=== PATIENT | male | born 2000 | race Two or more races ===

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

== ENCOUNTER 2020-10-07 | Emergency (ER) | payer BC | END 2020-10-07 20:39 | disposition home or self-care (01) | DX: K03.81 Cracked tooth (principal); I10 Essential (primary) hypertension; Z79.899 Other long term (current) drug therapy | CPT/HCPCS: 99282 ==

== ENCOUNTER 2021-12-18 03:16 | Emergency (ER) | payer BC ==
[2021-12-18 03:21] VITALS: BP 166/98; PULSE 109; RESP 22; TEMP 98.2
[2021-12-18 03:52] LABS: Appearance,Urine Cloudy (Clear); Bacteria,Urine Rare /hpf; Bilirubin,Urine Negative (Negative); Blood,Urine Negative (Negative); Color,Urine Yellow; Glucose,Urine (UA) Negative (Negative); Ketones,Urine Negative (Negative); Leukocyte Esterase,Urine Large (Negative); Mucus,Urine Rare /hpf; Nitrite,Urine Negative (Negative); Protein,Urine Trace (Negative); RBC,Urine 2 /hpf (0-5); Specific Gravity,Urine 1.017 (1.001-1.035); Squamous Epithelial Cell,Urine 1 /hpf (0-4); Urobilinogen,Urine <2.0 mg/dL (<2.0); WBC,Urine 81 /hpf (0-5)
[2021-12-18] MEDS ORDERED: DOXYCYCLINE 100 MG CAP PO STA (04:17)
[2021-12-18] MEDS ORDERED: cefTRIAXone 250 MG VIAL IM STA (04:17)
[2021-12-18] MEDS ORDERED: AZITHROMYCIN 500 MG TAB PO STA (04:17)
--- NOTE | 2021-12-18 04:25 | ED ---
Male Urogenital HPI - General Chief complaint: Urogenital Stated complaint: Abd Pain Time Seen by Provider: 12/18/21 04:14 Source: patient, RN notes reviewed, old records reviewed Mode of arrival: ambulatory Limitations: no limitations - History of Present Illness Initial comments: This is a 21-year-old male to the emergency department with plan with urination. Patient has no significant medical history of similar Irrijet infection no abdominal pain no fevers no nausea vomiting no other complaints no scrotal pain MD Complaint: dysuria -: days(s) Location: penis Radiation: none Severity: moderate Severity scale (1-10): 5 Quality: burning Consistency: constant Improves with: none Worsens with: urination Reports: dysuria - Related Data Home Medications Medication Instructions Recorded Confirmed FLUoxetine HCL [PROzac] 1 tab PO DAILY 04/13/16 04/13/16 hydroCHLOROthiazide 1 tab PO DAILY 04/13/16 04/13/16 Previous Rx's Medication Instructions Recorded Acetaminophen Tab [Tylenol Tab] 500 mg PO Q4H #20 tablet 12/27/17 Ibuprofen 400 mg PO TID #20 tablet 12/27/17 Penicillin V Potassium [Pen Vee K] 500 mg PO QID #28 tablet 12/27/17 Amoxicillin 500 mg PO Q8H #30 capsule 10/07/20 Ibuprofen [Motrin] 600 mg PO Q6HR PRN #20 tab 10/07/20 Allergies Allergy/AdvReac Type Severity Reaction Status Date / Time No Known Allergies Allergy Verified 12/18/21 03:21 Review of Systems ROS Statement: Those systems with pertinent positive or pertinent negative responses have been documented in the HPI. ROS Other: All systems not noted in ROS Statement are negative. Past Medical History Past Medical History: Hypertension, Osteoarthritis (OA) History of Any Multi-Drug Resistant Organisms: None Reported Past Surgical History: No Surgical Hx Reported Past Psychological History: No Psychological Hx Reported Smoking Status: Current every day smoker Past Alcohol Use History: None Reported Past Drug Use History: None Reported General Exam Limitations: no limitations General appearance: alert, in no apparent distress Head exam: Present: atraumatic, normocephalic, normal inspection Eye exam: Present: normal appearance, PERRL, EOMI. Absent: scleral icterus, conjunctival injection, periorbital swelling ENT exam: Present: normal exam, mucous membranes moist Neck exam: Present: normal inspection. Absent: tenderness, meningismus, lymphadenopathy Respiratory exam: Present: normal lung sounds bilaterally. Absent: respiratory distress, wheezes, rales, rhonchi, stridor Cardiovascular Exam: Present: normal rhythm, tachycardia, normal heart sounds. Absent: systolic murmur, diastolic murmur, rubs, gallop, clicks GI/Abdominal exam: Present: soft, normal bowel sounds. Absent: distended, t enderness, guarding, rebound, rigid Extremities exam: Present: normal inspection, full ROM, normal capillary refill. Absent: tenderness, pedal edema, joint swelling, calf tenderness Back exam: Present: normal inspection Neurological exam: Present: alert, oriented X3, CN II-XII intact Psychiatric exam: Present: normal affect, normal mood Skin exam: Present: warm, dry, intact, normal color. Absent: rash Course Vital Signs 12/18/21 03:17 Temperature 98.2 F Pulse Rate 109 H Respiratory 22 Rate Blood Pressure 166/98 O2 Sat by Pulse 97 Oximetry - Reevaluation(s) Reevaluation #1: 12/18/21 04:23 Medical records reviewed Reevaluation #2: 12/18/21 04:24 Patient informed of results questions answered Medical Decision Making - Medical Decision Making 21-year-old male to the emergency department for evaluation patient resents today for evaluation regarding burning with urination. Patient will be cultured place on antibiotics and can be discharged home - Lab Data Lab Results 12/18/21 Range/Units 03:25 Urine Color Yellow Urine Appearance Cloudy (Clear) Urine pH 6.0 (5.0-8.0) Ur Specific [place] 1.017 (1.001-1.035) Urine Protein Trace H (Negative) Urine Glucose (UA) Negative (Negative) Urine Ketones Negative (Negative) Urine Blood Negative (Negative) Urine Nitrite Negative (Negative) Urine Bilirubin Negative (Negative) Urine Urobilinogen <2.0 (<2.0) mg/dL Ur Leukocyte Esterase Large H (Negative) Urine RBC 2 (0-5) /hpf Urine WBC 81 H (0-5) /hpf Ur Squamous Epith Cells 1 (0-4) /hpf Urine Bacteria Rare H (None) /hpf Urine Mucus Rare H (None) /hpf Disposition Clinical Impression: UTI (urinary tract infection) Disposition: HOME SELF-CARE Instructions (If sedation given, give patient instructions): Urinary Tract Infection in Men (ED) Is patient prescribed a controlled substance at d/c from ED?: No Referrals: Garima Mathew MD [Primary Care Provider] - 1-2 days Time of Disposition: 04:30
[2021-12-21 15:11] LABS: C. trachomatis,PCR Negative (Neg,Equiv); Chlamydia trachomatis Source Urine; N. gonorrhoeae,PCR Negative (Neg,Equiv); Neisseria Source Urine
== END 2021-12-18 04:43 | disposition home or self-care (01) ==
LOC: EC 03:16
DX: N39.0 Urinary tract infection, site not specified (principal); I10 Essential (primary) hypertension; F17.200 Nicotine dependence, unspecified, uncomplicated; Z79.899 Other long term (current) drug therapy
CPT/HCPCS: 96372 ×2; 99284 ×2; 81001; 87491; 87591; 87086; J0696

== ENCOUNTER 2022-11-30 08:10 | Emergency (ER) | payer BC ==
--- NOTE | 2022-11-30 08:45 | ED ---
Extremity Problem HPI - General Chief complaint: Extremity Injury, Upper Stated complaint: Left hand pain Time Seen by Provider: 11/30/22 08:12 Source: patient, RN notes reviewed Mode of arrival: ambulatory Limitations: no limitations - History of Present Illness Initial comments: This is a 22-year-old male who presents to the emergency department for left hand pain. He states that he has had pain to the back of the left hand for the last month. Denies any injuries. He has not taken anything to treat his pain. He is still able to fully move the hand, but states that this produces pain. Denies any history of similar symptoms in the past. Denies any fevers, chills, sore throat, cough, dyspnea, chest pain, palpitations, abdominal pain, nausea, vomiting, diarrhea, back pain, or headaches. MD Complaint: extremity pain Onset/Timin -: month(s) - Related Data Home Medications Medication Instructions Recorded Confirmed FLUoxetine HCL [PROzac] 1 tab PO DAILY 04/13/16 04/13/16 hydroCHLOROthiazide 1 tab PO DAILY 04/13/16 04/13/16 Previous Rx's Medication Instructions Recorded Acetaminophen Tab [Tylenol Tab] 500 mg PO Q4H #20 tablet 12/27/17 Ibuprofen 400 mg PO TID #20 tablet 12/27/17 Penicillin V Potassium [Pen Vee K] 500 mg PO QID #28 tablet 12/27/17 Amoxicillin 500 mg PO Q8H #30 capsule 10/07/20 Ibuprofen [Motrin] 600 mg PO Q6HR PRN #20 tab 10/07/20 Doxycycline [Vibramycin] 100 mg PO BID 7 Days #14 capsule 12/18/21 Allergies Allergy/AdvReac Type Severity Reaction Status Date / Time No Known Allergies Allergy Verified 11/30/22 08:14 Review of Systems ROS Statement: Those systems with pertinent positive or pertinent negative responses have been documented in the HPI. ROS Other: All systems not noted in ROS Statement are negative. Past Medical History Past Medical History: Hypertension, Osteoarthritis (OA) History of Any Multi-Drug Resistant Organisms: None Reported Past Surgical History: No Surgical Hx Reported Past Psychological History: No Psychological Hx Reported Smoking Status: Current every day smoker Past Alcohol Use History: Occasional Past Drug Use History: None Reported General Exam Limitations: no limitations General appearance: alert, in no apparent distress Head exam: Present: atraumatic, normocephalic, normal inspection Respiratory exam: Present: normal lung sounds bilaterally. Absent: respiratory distress, wheezes, rales, rhonchi, stridor Cardiovascular Exam: Present: regular rate, normal rhythm, normal heart sounds. Absent: systolic murmur, diastolic murmur, rubs, gallop, clicks Extremities exam: Present: other (Minor tenderness to palpation over the dorsal aspect of the left hand. No overlying deformities. Range of motion of the wrist, hand, and fingers induces pain, however he does still have full range of motion.) Neurological exam: Present: alert, oriented X3, CN II-XII intact Psychiatric exam: Present: normal affect, normal mood Skin exam: Present: warm, dry, intact, normal color. Absent: rash Course Vital Signs 11/30/22 11/30/22 08:11 10:34 Temperature 98.2 F 97.8 F Pulse Rate 65 92 Respiratory 18 16 Rate Blood Pressure 163/105 148/88 O2 Sat by Pulse 99 97 Oximetry Medical Decision Making - Medical Decision Making This is a 22-year-old male who presents to the emergency department for left hand pain. Was pt. sent in by a medical professional or institution? @ -No Did you speak to anyone other than the patient for history? @ -No Did you review nursing and triage notes? @ -Yes, and I agree, it is accurate with regards to the patient's symptoms. Were old charts reviewed? @ -No Differential Diagnosis? @ -Differential Hand Pain: Fracture, dislocation, tendonitis, contusion, sprain, this is not meant to be an all-inclusive list. EKG interpreted by me (3pts min.)? @ -Not obtained X-rays interpreted by me (1pt min.)? @ -XR of the left hand obtained. My interpretation identifies no acute fractures. CT interpreted by me (1pt min.)? @ -Not obtained U/S interpreted by me (1pt. min.)? @ -Not obtained What testing was considered but not performed? (CT, X-rays, U/S, labs)? Why? @ -None What meds were considered but not given? Why? @ -None Did you discuss the management of the patient with other professionals? @ -No Did you reconcile home meds? @ -No Was smoking cessation discussed for >3mins.? @ -No Was critical care preformed (if so, how long)? @ -No Were there social determinants of health that impacted care today? How? (Homelessness, low income, unemployed, alcoholism, drug addiction, transportation, low edu. Level, literacy, decrease access to med. care, longterm, rehab)? @ -No Was there de-escalation of care discussed even if they declined? (Discuss DNR or withdrawal of care, Hospice)? @ -No What co-morbidities impacted this encounter? (DM, HTN, Smoking, COPD, CAD, Cancer, CVA, Hep., AIDS, mental health diagnosis, sleep apnea, morbid obesity)? @ -None Was patient admitted / discharged? @ -Discharged. X-ray of the left hand obtained revealing no acute process. Patient declined the need for any pain medication in the emergency department. Advised the patient that this is likely musculoskeletal in nature, such as an overuse injury. Advised he alternate with ibuprofen and Tylenol as needed for pain relief and follow-up with his PCP. Undiagnosed new problem with uncertain prognosis? @ -None Drug Therapy requiring intensive monitoring for toxicity (Heparin, Nitro, Insulin, Cardizem)? @ -None Were any procedures done? @ -None Diagnosis/symptom? @ -Left hand pain Acute, or Chronic, or Acute on Chronic? @ -Acute Uncomplicated (without systemic symptoms) or Complicated (systemic symptoms)? @ -Uncomplicated Side effects of treatment? @ -None Exacerbation, Progression, or Severe Exacerbation] @ -Not applicable Poses a threat to life or bodily function? @ -No Return precautions reviewed in depth, the patient is instructed to return to the emergency department with any new, worsening, or concerning symptoms. Patient verbalized understanding. This case was discussed in detail with the attending ED physician, Dr. Roldan. Presentation, findings, and treatment plan discussed in detail as well. - Radiology Data Radiology results: report reviewed, image reviewed Disposition Clinical Impression: Left hand pain Disposition: HOME SELF-CARE Instructions (If sedation given, give patient instructions): Hand Sprain (ED) Additional Instructions: Return to the emergency department with any new, worsening, or concerning symptoms. Alternate with ibuprofen and Tylenol as needed for pain relief. Follow up with your primary care provider in 1-2 days. Is patient prescribed a controlled substance at d/c from ED?: No Referrals: None,Stated [Primary Care Provider] - 1-2 days
--- NOTE | 2022-11-30 09:52 | XR ---
EXAMINATION TYPE: XR hand complete LT DATE OF EXAM: 11/30/2022 CLINICAL HISTORY: pain TECHNIQUE: Frontal, lateral and oblique images of the left hand are obtained. COMPARISON: None. FINDINGS: There is no acute fracture/dislocation evident. The joint spaces appear within normal limi ts. The overlying soft tissue appears unremarkable. IMPRESSION: There is no acute fracture or dislocation. ICD 10 NO FRACTURE, INITIAL EVALUATION
[2022-11-30 10:35] VITALS: BP 148/88; PULSE 92; RESP 16; TEMP 97.8
== END 2022-11-30 10:35 | disposition home or self-care (01) ==
LOC: EC 08:10
DX: M79.642 Pain in left hand (principal); I10 Essential (primary) hypertension; F17.200 Nicotine dependence, unspecified, uncomplicated; Z79.899 Other long term (current) drug therapy
CPT/HCPCS: 99283

== ENCOUNTER 2023-03-01 07:01 | Emergency (ER) | payer BC ==
--- NOTE | 2023-03-01 07:19 | ED ---
Upper Extremity HPI - General Chief Complaint: Extremity Injury, Upper Stated Complaint: Left Hand Injury Time Seen by Provider: 03/01/23 07:08 Source: patient, RN notes reviewed Mode of arrival: ambulatory Limitations: no limitations - History of Present Illness Initial Comments: 22-year-old male presents emergency Department with chief complaint of left hand injury. He states he injured it earlier this year wheezes at work he cannot exactly remember injury but felt that he twisted wrong. He complains of pain in his mid carpal region. Patient is [id number] he has pain with certain movements of his left hand, wrist region - Related Data Home Medications Medication Instructions Recorded Confirmed FLUoxetine HCL [PROzac] 1 tab PO DAILY 04/13/16 04/13/16 hydroCHLOROthiazide 1 tab PO DAILY 04/13/16 04/13/16 Previous Rx's Medication Instructions Recorded Acetaminophen Tab [Tylenol Tab] 500 mg PO Q4H #20 tablet 12/27/17 Ibuprofen 400 mg PO TID #20 tablet 12/27/17 Penicillin V Potassium [Pen Vee K] 500 mg PO QID #28 tablet 12/27/17 Amoxicillin 500 mg PO Q8H #30 capsule 10/07/20 Ibuprofen [Motrin] 600 mg PO Q6HR PRN #20 tab 10/07/20 Doxycycline [Vibramycin] 100 mg PO BID 7 Days #14 capsule 12/18/21 Allergies Allergy/AdvReac Type Severity Reaction Status Date / Time No Known Allergies Allergy Verified 03/01/23 07:06 Review of Systems ROS Statement: Those systems with pertinent positive or pertinent negative responses have been documented in the HPI. ROS Other: All systems not noted in ROS Statement are negative. Past Medical History Past Medical History: Hypertension, Osteoarthritis (OA) History of Any Multi-Drug Resistant Organisms: None Reported Past Surgical History: No Surgical Hx Reported Past Psychological History: No Psychological Hx Reported Smoking Status: Current every day smoker Past Alcohol Use History: Occasional Past Drug Use History: None Reported General Exam Limitations: no limitations General appearance: alert, in no apparent distress Head exam: Present: atraumatic, normocephalic, normal inspection Eye exam: Present: normal appearance, PERRL, EOMI. Absent: scleral icterus, conjunctival injection, periorbital swelling Respiratory exam: Present: normal lung sounds bilaterally. Absent: respiratory distress, wheezes, rales, rhonchi, stridor Cardiovascular Exam: Present: regular rate, normal rhythm, normal heart sounds. Absent: systolic murmur, diastolic murmur, rubs, gallop, clicks Extremities exam: Present: other (Left hand mid carpal there is mild tenderness, pain with ulnar and radial deviation, flexion extension of the wrist) Neurological exam: Present: reflexes normal. Absent: motor sensory deficit Course Vital Signs 03/01/23 07:04 Temperature 97 F L Pulse Rate 98 Respiratory 18 Rate Blood Pressure 175/98 O2 Sat by Pulse 98 Oximetry Medical Decision Making - Medical Decision Making Was pt. sent in by a medical professional or institution (STEVEN Mar, MILITARY SOURCE OPERATIONS OFFICER, urgent care, hospital, or snf...) When possible be specific @ -No Did you speak to anyone other than the patient for history (EMS, parent, family, police, friend...)? What history was obtained from this source @ -No Did you review nursing and triage notes (agree or disagree)? Why? @ -I reviewed and agree with nursing and triage notes Were old charts reviewed (outside hosp., previous admission, EMS record, old EKG, old radiological studies, urgent care reports/EKG's, snf records)? Report findings @ -No old charts were reviewed Differential Diagnosis (chest pain, altered mental status, abdominal pain women, abdominal pain men, vaginal bleeding, weakness, fever, dyspnea, syncope, headache, dizziness, GI bleed, back pain, seizure, CVA, palpatations, mental health, musculoskeletal)? @ -Wrist fracture, wrist sprain EKG interpreted by me (3pts min.). @ -None X-rays interpreted by me (1pt min.). @ -X-ray left wrist shows no acute fracture or dislocation CT interpreted by me (1pt min.). @ -None done U/S interpreted by me (1pt. min.). @ -None done What testing was considered but not performed or refused? (CT, X-rays, U/S, labs)? Why? @ -Considered MRI though this will be completed outpatient What meds were considered but not given or refused? Why? @ -None Did you discuss the management of the patient with other professionals (professionals i.e. STEVEN Mar, MILITARY SOURCE OPERATIONS OFFICER, lab, RT, psych nurse, social media content manager, hander in, teacher, chief juvenile probation officer, keycase assembler)? Give summary @ -No Was smoking cessation discussed for >3mins.? @ -No Was critical care preformed (if so, how long)? @ -No Were there social determinants of health that impacted care today? How? (Homelessness, low income, unemployed, alcoholism, drug addiction, transportation, low edu. Level, literacy, decrease access to med. care, penitentiary, rehab)? @ -No Was there de-escalation of care discussed even if they declined (Discuss DNR or withdrawal of care, Hospice)? DNR status @ -No What co-morbidities impacted this encounter? (DM, HTN, Smoking, COPD, CAD, Cancer, CVA, ARF, Chemo, Hep., AIDS, mental health diagnosis, sleep apnea, morbid obesity)? @ -None Was patient admitted / discharged? Hospital course, mention meds given and route, prescriptions, significant lab abnormalities, going to OR and other pertinent info. @ -Discharge patient will follow-up with orthopedics as this is an ongoing issue for months there may be ligamentous injury and may require MRI. Undiagnosed new problem with uncertain prognosis? @ -No Drug Therapy requiring intensive monitoring for toxicity (Heparin, Nitro, Insulin, Cardizem)? @ -No Were any procedures done? @ -No Diagnosis/symptom? @ -Left wrist pain, carpal injury Acute, or Chronic, or Acute on Chronic? @ -Acute Uncomplicated (without systemic symptoms) or Complicated (systemic symptoms)? @ -Uncomplicated Side effects of treatment? @ -No Exacerbation, Progression, or Severe Exacerbation? @ -No Poses a threat to life or bodily function? How? (Chest pain, [place], [place], pneumonia, PE, COPD, DKA, ARF, appy, cholecystitis, CVA, Diverticulitis, Homicidal, Suicidal, threat to staff... and all critical care pts) @ -No Disposition Clinical Impression: Left hand pain, Sprain of carpal joint of wrist Disposition: HOME SELF-CARE Condition: Stable Instructions (If sedation given, give patient instructions): Wrist Injury (ED) Additional Instructions: Please return to the Emergency Department if symptoms worsen or any other concerns. Is patient prescribed a controlled substance at d/c from ED?: No Referrals: None,Stated [Primary Care Provider] - 1-2 days Nicholas Bhatti DO [Doctor of Osteopathic Medicine] - 1-2 days Time of Disposition: 08:01
[2023-03-01 07:29] VITALS: BP 175/98; PULSE 98; RESP 18; TEMP 97
--- NOTE | 2023-03-01 07:53 | XR ---
EXAMINATION TYPE: XR hand complete LT DATE OF EXAM: 03/01/2023 7:32 AM CLINICAL INDICATION:Male, 22 years old with history of pain mid carpal; [facility] COMPARISON: None TECHNIQUE: XR hand complete LT Frontal, lateral and oblique views were obtained. FINDINGS: Normal alignment of the visualized joints. No acute osseous pathology is identified. No e vidence of soft tissue swelling. IMPRESSION: No acute osseous pathology.
== END 2023-03-01 08:10 | disposition home or self-care (01) ==
LOC: EC 07:01
DX: S63.512A Sprain of carpal joint of left wrist, initial encounter (principal); I10 Essential (primary) hypertension; F17.200 Nicotine dependence, unspecified, uncomplicated; X50.1XXA Overexertion from prolonged static or awkward postures, initial encounter
CPT/HCPCS: 99283

== ENCOUNTER 2023-03-07 07:22 | Emergency (ER) | payer BC ==
[2023-03-07] MEDS ORDERED: ACET/COD 300 MG/30 MG STARTER PACK 6 TAB BTL PO STA (07:49)
--- NOTE | 2023-03-07 07:53 | ED ---
General Adult HPI - General Stated complaint: left hand injury recheck Time Seen by Provider: 03/07/23 07:49 Source: patient, RN notes reviewed Mode of arrival: ambulatory Limitations: no limitations - History of Present Illness Initial comments: 22-year-old male presents emergency Department chief complaint of hand pain, wrist pain. Patient seen here a day for this complaint in injury at the beginning of the year he was unable to follow with orthopedics as directed. Patient states that he needs something for the discomfort. Patient offers no other complaints. - Related Data Home Medications Medication Instructions Recorded Confirmed FLUoxetine HCL [PROzac] 1 tab PO DAILY 04/13/16 04/13/16 hydroCHLOROthiazide 1 tab PO DAILY 04/13/16 04/13/16 Previous Rx's Medication Instructions Recorded Acetaminophen Tab [Tylenol Tab] 500 mg PO Q4H #20 tablet 12/27/17 Ibuprofen 400 mg PO TID #20 tablet 12/27/17 Penicillin V Potassium [Pen Vee K] 500 mg PO QID #28 tablet 12/27/17 Amoxicillin 500 mg PO Q8H #30 capsule 10/07/20 Ibuprofen [Motrin] 600 mg PO Q6HR PRN #20 tab 10/07/20 Doxycycline [Vibramycin] 100 mg PO BID 7 Days #14 capsule 12/18/21 Ibuprofen [Motrin] 600 mg PO Q8HR PRN #30 tab 03/07/23 Allergies Allergy/AdvReac Type Severity Reaction Status Date / Time No Known Allergies Allergy Verified 03/01/23 07:06 Review of Systems ROS Statement: Those systems with pertinent positive or pertinent negative responses have been documented in the HPI. ROS Other: All systems not noted in ROS Statement are negative. Past Medical History Past Medical History: Hypertension, Osteoarthritis (OA) History of Any Multi-Drug Resistant Organisms: None Reported Past Surgical History: No Surgical Hx Reported Past Psychological History: No Psychological Hx Reported Smoking Status: Current every day smoker Past Alcohol Use History: Occasional Past Drug Use History: None Reported General Exam Limitations: no limitations General appearance: alert, in no apparent distress Head exam: Present: atraumatic, normocephalic, normal inspection Respiratory exam: Present: normal lung sounds bilaterally. Absent: respiratory distress, wheezes, rales, rhonchi, stridor Cardiovascular Exam: Present: regular rate, normal rhythm, normal heart sounds. Absent: systolic murmur, diastolic murmur, rubs, gallop, clicks Extremities exam: Present: other (Left wrist full range of motion mild tenderness over the carpal region, neurovascular intact full strength) Course Vital Signs 03/07/23 08:02 Temperature 98 F Pulse Rate 102 H Respiratory 18 Rate Blood Pressure 168/98 O2 Sat by Pulse 98 Oximetry Medical Decision Making - Medical Decision Making Was pt. sent in by a medical professional or institution (STEVEN Mar, DIRECTOR OF STRATEGIC PROGRAMS, urgent care, hospital, or detention...) When possible be specific @ -No Did you speak to anyone other than the patient for history (EMS, parent, family, police, friend...)? What history was obtained from this source @ -No Did you review nursing and triage notes (agree or disagree)? Why? @ -I reviewed and agree with nursing and triage notes Were old charts reviewed (outside hosp., previous admission, EMS record, old EKG, old radiological studies, urgent care reports/EKG's, detention records)? Report findings @ -Reviewed prior x-rays Differential Diagnosis (chest pain, altered mental status, abdominal pain women, abdominal pain men, vaginal bleeding, weakness, fever, dyspnea, syncope, headache, dizziness, GI bleed, back pain, seizure, CVA, palpatations, mental health, musculoskeletal)? @ -Wrist sprain, wrist injury, wrist fracture EKG interpreted by me (3pts min.). @ -None X-rays interpreted by me (1pt min.). @ -None done CT interpreted by me (1pt min.). @ -None done U/S interpreted by me (1pt. min.). @ -None done What testing was considered but not performed or refused? (CT, X-rays, U/S, labs)? Why? @ -Patient recent x-ray advised to follow-up with orthopedics for MRI What meds were considered but not given or refused? Why? @ -None Did you discuss the management of the patient with other professionals (professionals i.e. STEVEN Mar, DIRECTOR OF STRATEGIC PROGRAMS, lab, RT, psych nurse, family welfare social work professor, marketing research analyst, teacher, audit officer, rn case manager hospice)? Give summary @ -No Was smoking cessation discussed for >3mins.? @ -No Was critical care preformed (if so, how long)? @ -No Were there social determinants of health that impacted care today? How? (Homelessness, low income, unemployed, alcoholism, drug addiction, transportation, low edu. Level, literacy, decrease access to med. care, longterm, rehab)? @ -No Was there de-escalation of care discussed even if they declined (Discuss DNR or withdrawal of care, Hospice)? DNR status @ -No What co-morbidities impacted this encounter? (DM, HTN, Smoking, COPD, CAD, Cancer, CVA, ARF, Chemo, Hep., AIDS, mental health diagnosis, sleep apnea, morbid obesity)? @ -None Was patient admitted / discharged? Hospital course, mention meds given and route, prescriptions, significant lab abnormalities, going to OR and other pertinent info. @ -Discharge patient's left wrist sprain, tendinitis patient was given splint, ibuprofen return parameters were discussed Undiagnosed new problem with uncertain prognosis? @ -No Drug Therapy requiring intensive monitoring for toxicity (Heparin, Nitro, Insulin, Cardizem)? @ -No Were any procedures done? @ -No Diagnosis/symptom? @ -Wrist injury, sprain Acute, or Chronic, or Acute on Chronic? @ -Acute Uncomplicated (without systemic symptoms) or Complicated (systemic symptoms)? @ -Uncomplicated Side effects of treatment? @ -No Exacerbation, Progression, or Severe Exacerbation? @ -No Poses a threat to life or bodily function? How? (Chest pain, [place], [place], pneumonia, PE, COPD, DKA, ARF, appy, cholecystitis, CVA, Diverticulitis, Homicidal, Suicidal, threat to staff... and all critical care pts) @ -No Disposition Clinical Impression: Left hand pain, Sprain of carpal joint of wrist Disposition: HOME SELF-CARE Condition: Stable Instructions (If sedation given, give patient instructions): Wrist Injury (ED) Additional Instructions: Please return to the Emergency Department if symptoms worsen or any other concerns. Prescriptions: Ibuprofen [Motrin] 600 mg PO Q8HR PRN #30 tab PRN Reason: Pain Is patient prescribed a controlled substance at d/c from ED?: No Referrals: None,Stated [Primary Care Provider] - 1-2 days Time of Disposition: 07:53
[2023-03-07 08:25] VITALS: BP 168/98; PULSE 102; RESP 18; TEMP 98
== END 2023-03-07 12:12 | disposition home or self-care (01) ==
LOC: EC 07:22
DX: S63.502A Unspecified sprain of left wrist, initial encounter (principal); I10 Essential (primary) hypertension; F17.200 Nicotine dependence, unspecified, uncomplicated; Z79.899 Other long term (current) drug therapy; X58.XXXA Exposure to other specified factors, initial encounter
CPT/HCPCS: 99283

== ENCOUNTER 2023-07-14 08:51 | Emergency (ER) | payer BC ==
[2023-07-14 08:58] VITALS: RESP 18
--- NOTE | 2023-07-14 09:04 | ED ---
General Adult HPI - General Chief complaint: Extremity Problem,Nontraumatic Stated complaint: L Finger Pain Time Seen by Provider: 07/14/23 08:55 Source: patient, RN notes reviewed, old records reviewed Mode of arrival: ambulatory Limitations: no limitations - History of Present Illness Initial comments: Patient is a 22-year-old male who presents emergency department with a infection on his left index finger. Has been present for approximately 1 week. Painful. Noticed some purulence present as well. Denies any other acute complaints at this time. Patient is right-handed. Denies any fevers. No allergies to antibiotics. Up-to-date on tetanus. Presents for further evaluation. No obvious injury. - Related Data Home Medications Medication Instructions Recorded Confirmed FLUoxetine HCL [PROzac] 1 tab PO DAILY 04/13/16 04/13/16 hydroCHLOROthiazide 1 tab PO DAILY 04/13/16 04/13/16 Previous Rx's Medication Instructions Recorded Acetaminophen Tab [Tylenol Tab] 500 mg PO Q4H #20 tablet 12/27/17 Ibuprofen 400 mg PO TID #20 tablet 12/27/17 Penicillin V Potassium [Pen Vee K] 500 mg PO QID #28 tablet 12/27/17 Amoxicillin 500 mg PO Q8H #30 capsule 10/07/20 Ibuprofen [Motrin] 600 mg PO Q6HR PRN #20 tab 10/07/20 Doxycycline [Vibramycin] 100 mg PO BID 7 Days #14 capsule 12/18/21 Ibuprofen [Motrin] 600 mg PO Q8HR PRN #30 tab 03/07/23 Sulfamethox-Tmp 800-160Mg [Bactrim 1 tab PO Q12HR 7 Days #14 tab 07/14/23 DS 800-160 mg] Allergies Allergy/AdvReac Type Severity Reaction Status Date / Time No Known Allergies Allergy Verified 07/14/23 08:55 Review of Systems ROS Statement: Those systems with pertinent positive or pertinent negative responses have been documented in the HPI. Review of Systems: CONST: Denies fever EYES: Denies blurry vision ENT: Denies nasal congestion C/V: Denies Chest pain RESP: Denies shortness of breath GI: Denies abdominal pain : Denies dysuria SKIN: Endorses skin infection MSK: Endorses left second digit pain. NEURO: Denies headache ROS Other: All systems not noted in ROS Statement are negative. Past Medical History Past Medical History: Hypertension, Osteoarthritis (OA) History of Any Multi-Drug Resistant Organisms: None Reported Past Surgical History: No Surgical Hx Reported Past Psychological History: No Psychological Hx Reported Smoking Status: Current every day smoker Past Alcohol Use History: Occasional Past Drug Use History: None Reported General Exam - General Exam Comments Initial Comments: General: Appears in no acute distress. HEAD: Normal with no signs of head trauma. EYES: EOMI. ENT: Hearing grossly intact. RESPIRATORY: No respiratory distress. C/V: Regular rate and rhythm. ABD: Abdomen is nondistended. EXT: No obvious deformity. Normal range of motion of the left hand and fingers. SKIN: Erythematous over the distal phalanx, appears to have a paronychia on the lateral aspect of the dorsal left second digit. Area of fluctuance as well. Concern for paronychia with surrounding cellulitis.Size of the area of fluctuance is small, approximately half a centimeter NEURO: Alert and oriented. Limitations: no limitations Course Vital Signs 07/14/23 07/14/23 08:52 09:42 Temperature 97.9 F 97.7 F Pulse Rate 94 91 Respiratory 18 18 Rate Blood Pressure 182/111 177/89 O2 Sat by Pulse 98 98 Oximetry Procedures - Incision & Drainage Consent Obtained: verbal consent Indication: paronychia, abscess drainage. Size 0.5 cm. Site: hand Anesthetic Used: lidocaine 2% Amount (mLs): 2 I&D Cleaning Method: Alcohol Wipe Sterile Field Used?: Yes Scalpel Used: #11 I&D Drainage Obtained: Pus Patient Tolerated Procedure: well Medical Decision Making - Medical Decision Making Was pt. sent in by a medical professional or institution (STEVEN Mar, ARTILLERY OFFICER, urgent care, hospital, or skilled nursing...) When possible be specific @ -No Did you speak to anyone other than the patient for history (EMS, parent, family, police, friend...)? What history was obtained from this source @ -No Did you review nursing and triage notes (agree or disagree)? Why? @ -I reviewed and agree with nursing and triage notes Were old charts reviewed (outside hosp., previous admission, EMS record, old EKG, old radiological studies, urgent care reports/EKG's, skilled nursing records)? Report findings @ -No old charts were reviewed Differential Diagnosis (chest pain, altered mental status, abdominal pain women, abdominal pain men, vaginal bleeding, weakness, fever, dyspnea, syncope, headache, dizziness, GI bleed, back pain, seizure, CVA, palpatations, mental health, musculoskeletal)? @ -Paronychia, cellulitis, skin infection. This list is not all inclusive. EKG interpreted by me (3pts min.). @ -None done X-rays interpreted by me (1pt min.). @ -None done CT interpreted by me (1pt min.). @ -None done U/S interpreted by me (1pt. min.). @ -None done What testing was considered but not performed or refused? (CT, X-rays, U/S, labs)? Why? @ -None What meds were considered but not given or refused? Why? @ -None Did you discuss the management of the patient with other professionals (professionals i.e. , PA, ARTILLERY OFFICER, lab, RT, psych nurse, pediatric social worker, automotive tire tester, teacher, aoc director combat operations officer, wrapper caser)? Give summary @ -No Was smoking cessation discussed for >3mins.? @ -No Was critical care preformed (if so, how long)? @ -No Were there social determinants of health that impacted care today? How? (Homelessness, low income, unemployed, alcoholism, drug addiction, transportation, low edu. Level, literacy, decrease access to med. care, residential, rehab)? @ -No Was there de-escalation of care discussed even if they declined (Discuss DNR or withdrawal of care, Hospice)? DNR status @ -No What co-morbidities impacted this encounter? (DM, HTN, Smoking, COPD, CAD, Cancer, CVA, ARF, Chemo, Hep., AIDS, mental health diagnosis, sleep apnea, mor bid obesity)? @ -None Was patient admitted / discharged? Hospital course, mention meds given and route, prescriptions, significant lab abnormalities, going to OR and other pertinent info. @ -Patient presents with what appears to be a paronychia on the left second digit. Patient is right-handed. Vital signs within acceptable limits. No systemic signs of infection. Normal range of motion of the finger. Infection seems isolated to the distal phalanx on that finger. Discussed with the patient we will perform an incision and drainage as there is an obvious area of fluctuance that is approximately half a centimeter in diameter. Please see additional note for further information. Patient was anesthetized with lidocaine prior to procedure.Patient had output of purulent material. Patient tolerated the procedure well. He will be given a dose of Bactrim. He is up-to-date on tetanus. Will be given a prescription for Bactrim. Recommend follow-up with his PCP. He was in agreement this plan. I will provide the patient with a prescription for Bactrim. I instructed the patient to follow up with their PCP in the next 1-3 days.. I explained that the patient should return to the emergency department if they experience any worsening symptoms. Strict return precautions were discussed with the patient. The patient expressed understanding of these instructions. I answered all questions that the patient had. The patient was discharged home in good condition with their prescriptions and follow up information. Undiagnosed new problem with uncertain prognosis? @ -No Drug Therapy requiring intensive monitoring for toxicity (Heparin, Nitro, Insulin, Cardizem)? @ -No Were any procedures done? @ -Incision and drainage Diagnosis/symptom? @ -Left hand second digit paronychia Acute, or Chronic, or Acute on Chronic? @ -Acute Uncomplicated (without systemic symptoms) or Complicated (systemic symptoms)? @ -Uncomplicated Side effects of treatment? @ -No Exacerbation, Progression, or Severe Exacerbation? @ -No Poses a threat to life or bodily function? How? (Chest pain, [place], [place], pneumonia, PE, COPD, DKA, ARF, appy, cholecystitis, CVA, Diverticulitis, Homicidal, Suicidal, threat to staff... and all critical care pts) @ -Unlikely Disposition Clinical Impression: Paronychia Disposition: HOME SELF-CARE Condition: Good Instructions (If sedation given, give patient instructions): Paronychia (ED) Prescriptions: Sulfamethox-Tmp 800-160Mg [Bactrim DS 800-160 mg] 1 tab PO Q12HR 7 Days #14 tab Is patient prescribed a controlled substance at d/c from ED?: No Referrals: None,Stated [Primary Care Provider] - 1-2 days Forms: Area PCPs Time of Disposition: 09:34
[2023-07-14] MEDS: SULFAMETHOX-TMP 800-160MG 1 EACH TAB PO STA (09:09)
[2023-07-14] MEDS: LIDOCAINE 2% INJ 20 MG/ML (10 ML MDV) SQ STA (09:22)
[2023-07-14 10:19] VITALS: BP 177/89; PULSE 91; TEMP 97.7
== END 2023-07-14 09:44 | disposition home or self-care (01) ==
LOC: EC 08:51
DX: L03.012 Cellulitis of left finger (principal); F17.200 Nicotine dependence, unspecified, uncomplicated
CPT/HCPCS: 99283; 26010; J2001